=== PATIENT | female | born 1995 | race Caucasian/White ===

== ENCOUNTER 2018-07-06 14:00 | Emergency (ER) | payer BC ==
[2018-07-06] MEDS ORDERED: ONDANSETRON DISINTEGRATING 4 MG TAB PO ONE (14:15)
--- NOTE | 2018-07-06 14:19 | EDPHY ---
H & P Source: Patient Exam Limitations: No limitations - Medical/Surgical History Hx Asthma: No Hx Chronic Respiratory Disease: No Hx Diabetes: No Hx Cardiac Disease: No Hx Renal Disease: No Hx Cirrhosis: No Hx Alcoholism: No Hx HIV/AIDS: No Hx Splenectomy or Spleen Trauma: No - Family History Significant Family History: No pertinent family hx - Social History Smoking Status: Never smoked Alcohol Use: Sober Drug Use: Marijuana Time Seen by Provider: 07/06/18 14:12 HPI/ROS: CHIEF COMPLAINT: Marijuana overdose HISTORY OF PRESENT ILLNESS: The patient is a 22-year-old female who was eating marijuana gummys without knowing. She states that she had an unknown amount possibly around 10 of them between 10:00 a.m. And noon today. Around 1:00 a.m. She began feeling jittery and nauseous. Her boyfriend brought to the ER. She has vomited twice in route. She has no significant past medical history. Severity: Moderate Modifying factors: None REVIEW OF SYSTEMS: Constitutional: denies: chills, fever, recent illness, recent injury EENTM: denies: blurred vision, double vision, nose congestion Respiratory: denies: cough, shortness of breath Cardiac: denies: chest pain, irregular heart rate, lightheadedness, palpitations Gastrointestinal/Abdominal: See HPI Genitourinary: denies: dysuria, frequency, hematuria, pain Musculoskeletal: denies: joint pain, muscle pain Skin: denies: lesions, rash, jaundice, bruising Neurological: See HPI denies: headache, numbness, paresthesia, tingling, dizziness, weakness Hematologic/Lymphatic: denies: blood clots, easy bleeding, easy bruising Immunologic/allergic: denies: HIV/AIDS, transplant 10 systems reviewed and negative except as noted EXAM: GENERAL: Vomiting in room, moderate distress HEAD: Atraumatic, normocephalic. EYES: Pupils equal round and reactive to light, extraocular movements intact, sclera anicteric, conjunctiva are normal. ENT: TMs normal, nares patent, oropharynx clear without exudates. Moist mucous membranes. NECK: Normal range of motion, supple without lymphadenopathy or JVD. LUNGS: Breath sounds clear to auscultation bilaterally and equal. No wheezes rales or rhonchi. HEART: Regular rate and rhythm without murmurs, rubs or gallops. ABDOMEN: Soft, nontender, normoactive bowel sounds. No guarding, no rebound. No masses appreciated. BACK: No CVA tenderness, no spinal tenderness, step-offs or deformities EXTREMITIES: Normal range of motion, no pitting or edema. No clubbing or cyanosis. NEUROLOGICAL: Cranial nerves II through XII grossly intact. Normal speech, normal gait. 5/5 strength, normal movement in all extremities, normal sensation , PSYCH: Normal mood, normal affect. SKIN: Warm, dry, normal turgor, no visible rashes or lesions. (Serge Madrid) Constitutional: Initial Vital Signs Temperature (C) 36.6 C 07/06/18 14:25 Heart Rate 118 H 07/06/18 14:25 Respiratory Rate 18 07/06/18 14:25 Blood Pressure 138/84 H 07/06/18 14:25 O2 Sat (%) 97 07/06/18 14:25 O2 Delivery Mode Room Air Medical Decision Making ED Course/Re-evaluation: The patient has a heart rate of 75 and looks well on exam. She is still nauseous. Will give oral Zofran and oral hydration and observe. 3:00 p.m. Care transferred to Dr. Lemons at shift change. (Serge Madrid) 3:40 p.m.- Patient has normal vital signs. Continues to look well on exam. Able to drink fluids, able to walk without difficulty. Plan to discharge to home. I have discussed return precautions. (Nuvia Lemons) Differential Diagnosis: Partial list of the Differential diagnosis considered include but were not limited to; marijuana overdose, substance abuse, gastroenteritis, dehydration, anxiety and although unlikely based on the history and physical exam, I also considered toxic ingestion, self-harm, cardiac disease. (Serge Madrid) - Data Points Medications Given: Discontinued Medications Ondansetron HCl (Zofran Odt) 4 mg PO EDNOW ONE Stop: 07/06/18 14:16 Last Admin: 07/06/18 14:22 Dose: 4 mg Departure - Departure Disposition: Home, Routine, Self-Care Clinical Impression: Accidental marijuana overdose Qualifiers: Encounter type: initial encounter Qualified Code(s): T40.7X1A - Poisoning by cannabis (derivatives), accidental (unintentional), initial encounter Condition: Good Instructions: Cannabis Abuse (ED) Additional Instructions: Please return to the emergency department if your worse in any way. Make sure to drink plenty of liquids. I anticipate your symptoms should improve later this evening. Referrals: Jane West MD [Medical Doctor] - As per Instructions
[2018-07-06 15:53] VITALS: BP 112/62
== END 2018-07-06 15:51 | disposition home or self-care (01) ==
LOC: CED 14:00
DX: R11.2 Nausea with vomiting, unspecified (principal); T40.7X1A Poisoning by cannabis (derivatives), accidental (unintentional), initial encounter
CPT/HCPCS: 99283-ER